=== PATIENT | female | born 1950 | race Caucasian/White ===

== ENCOUNTER 2022-03-23 14:27 | Emergency (ER) | payer OTHER ==
[~2022-03-23] VITALS: Ht 175.3 cm; Wt 79.4 kg
[~2022-03-23 14:27] MED LIST: ALPR0.5T8 PO; PARO-154 PO; REFLUX MED PO; TRAZ-182 PO; ZOLP5TAB2 PO
--- NOTE | 2022-03-23 14:40 | NUR ---
Dr Sanz at the bedside for MSE.
[2022-03-23] MEDS ORDERED: GABA600T12 PO (14:58)
[2022-03-23] MEDS ORDERED: FLUT16SP16 BNOSTRILS (14:58)
[2022-03-23] MEDS ORDERED: ALPR0.255 PO (14:58)
[2022-03-23] MEDS ORDERED: MONT10TA22 PO (14:58)
[2022-03-23] MEDS ORDERED: HALOPERIDOL LACTATE 5 MG/1 ML VIAL ONE (14:59)
[2022-03-23] MEDS ORDERED: HALOPERIDOL LACTATE 5 MG/1 ML VIAL IV ONE (15:00)
--- NOTE | 2022-03-23 15:04 | NUR ---
Pt out of ER for Ct scan.
--- NOTE | 2022-03-23 15:17 | NUR ---
Pt back from CT, resting in bed.
[2022-03-23 15:29] LABS: HEMATOCRIT 34.8 % (31.2-41.9); MEAN CORPUSCULAR HEMOGLOBIN 32.4 uug (24.7-32.8); MEAN CORPUSCULAR VOLUME 93.5 fL (75.5-95.3); PLATELET COUNT (AUTO) 257 K/uL (179-408)
[2022-03-23 15:37] LABS: CREATININE 0.7 mg/dL (0.6-1.3); POTASSIUM 3.7 mmol/L (3.5-5.1)
[2022-03-23 15:43] LABS: BILIRUBIN,TOTAL 0.4 mg/dL (0.2-1.0); TOTAL PROTEIN, SERUM 6.8 g/dL (6.4-8.2)
--- NOTE | 2022-03-23 16:11 | NUR ---
Pt states feeling better, sitting up in bed and drinking water.
[2022-03-23 17:12] VITALS: BP 118/79
--- NOTE | 2022-03-23 17:12 | NUR ---
IV removed. Catheter intact and site benign. Pressure and 4x4 gauze applied to site. No bleeding noted.
--- NOTE | 2022-03-23 17:16 | NUR ---
Patient discharged to home in stable condition. Written and verbal after care instructions given. Patient verbalizes understanding of instructions. Stressed follow up or return to ER for worsening s/s. Pt walked out of ER w/teady gait.
== END 2022-03-23 17:17 | disposition home or self-care (01) ==
LOC: ER 14:29
DX: E87.1 Hypo-osmolality and hyponatremia (principal); R42 Dizziness and giddiness; R26.89 Other abnormalities of gait and mobility; F41.9 Anxiety disorder, unspecified; Z79.899 Other long term (current) drug therapy; Z88.1 Allergy status to other antibiotic agents; Z87.19 Personal history of other diseases of the digestive system
CPT/HCPCS: 70450; 71045; 80053; 85025; 85730; 96374; 99285; J1630; 36415; A4663